=== PATIENT | female | born 1955 | race American Indian/Alaskan Native ===

== ENCOUNTER 2022-07-06 19:26 | Emergency (ER) | payer MEDICARE ==
--- NOTE | 2022-07-06 22:41 | Emergency Department Report ---
History of Present Illness - General Chief Complaint: Overdose Stated Complaint: OVERDOSE/DEPRESSION Time Seen by Provider: 07/06/22 22:26 Source: EMS Mode of arrival: Stretcher Limitations: No Limitations - History of Present Illness Initial Comments: 66 yo F brought in with overdose on xanax about 5 tablets or more in other to kill herself. Pt wrote note on her forearm to her daughter. Pt denies any CP, sob or palpitation. No other modifying or associated factors. Complaint: intentional overdose - Related Data Allergies Allergy/AdvReac Type Severity Reaction Status Date / Time No Known Allergies Allergy Unverified 07/06/22 22:27 ED Review of Systems ROS: Stated complaint: OVERDOSE/DEPRESSION Other details as noted in HPI Comment: All other systems reviewed and negative Psychiatric: suicidal thoughts (suicide attempt ), other ED Physical Exam - General Limitations: No Limitations General appearance: alert, in no apparent distress - Head Head exam: Present: normal inspection - Eye Eye exam: Present: normal appearance Pupils: Present: normal accommodation - ENT ENT exam: Present: normal exam, normal orophraynx, mucous membranes moist - Neck Neck exam: Present: normal inspection, full ROM. Absent: tenderness - Respiratory Respiratory exam: Present: normal lung sounds bilaterally. Absent: respiratory distress, accessory muscle use - Cardiovascular Cardiovascular Exam: Present: regular rate, normal rhythm, normal heart sounds - GI/Abdominal GI/Abdominal exam: Present: soft, normal bowel sounds. Absent: distended, tenderness - Extremities Exam Extremities exam: Present: normal inspection, normal capillary refill. Absent: tenderness, pedal edema - Back Exam Back exam: Absent: tenderness - Neurological Exam Neurological exam: Present: alert, oriented X3 - Psychiatric Psychiatric exam: Present: normal affect, normal mood - Skin Skin exam: Present: warm, normal color ED Course Vital Signs 07/06/22 07/06/22 07/06/22 19:32 23:00 23:16 Temperature 98.3 F Pulse Rate 81 86 68 Respiratory 18 16 13 Rate Blood Pressure Blood Pressure 124/81 [Left] O2 Sat by Pulse 98 100 100 Oximetry 07/06/22 07/06/22 07/07/22 23:30 23:46 00:00 Temperature Pulse Rate 91 H 72 64 Respiratory 14 19 15 Rate Blood Pressure Blood Pressure [Left] O2 Sat by Pulse 100 100 100 Oximetry 07/07/22 07/07/22 07/07/22 00:16 00:30 00:46 Temperature Pulse Rate 66 63 65 Respiratory 14 16 14 Rate Blood Pressure Blood Pressure [Left] O2 Sat by Pulse 100 100 100 Oximetry 07/07/22 07/07/22 01:16 01:30 Temperature Pulse Rate 59 L Respiratory 14 14 Rate Blood Pressure 129/82 125/78 Blood Pressure [Left] O2 Sat by Pulse 100 100 Oximetry ED Medical Decision Making - Lab Data Result diagrams: 07/06/22 22:47 07/06/22 22:47 - EKG Data -: EKG Interpreted by Me EKG shows normal: sinus rhythm Rate: normal - EKG Data 07/06/22 23:25 Noted with normal sinus rhythm at a rate of 66 bpm and there is low voltage otherwise normal ECG. - Medical Decision Making here with overdose on xanax -we will go ahead and do a routine psych order including UDS, CBC, CMP and urinalysis-- Lab reviews noted to be unremarkable including drug screening Poison control called suggested to order EKG and repeat Tylenol inasmuch as this is unremarkable patient could be discharged after monitoring for several hours. Here with overdose on her xanax in other to hurt herself--differential diagnosis, including but not limited to: Encounter for behavioral health screening examination, encounter for medical screening examination--Due to these will go ahead and other routine labs studies including CBC, CMP and UA with UDS and thyroid profile in anticipation for mental health evaluation. Assessment and plan: here with concern with depressive feeling and suicidal ideation --but noted with reassuring vital signs, in no acute distress, who is cooperative, ANO x3, not homicidal but suicidal. At this point in time, this patient is cleared medically for psychiatry evaluation and recommendation. I will go ahead and order a 1013. He has not demonstrated any witnessed behavior here in the ED that would be consistent with acute decompensated psychosis. I have ordered mental health evaluation. Will go ahead and order typical laboratory studies in anticipation of mental health requests. Laboratory studies are reviewed and are unremarkable at this time. Awaiting mental health consultation and evaluation. Ultimate disposition as per mental health team. At this point in time, this patient does not appear to have an immediate medical contraindication to psychiatric admission, evaluation, consultation and placement. Patient has had his 1013 filled out by myself. Holding orders initiated. COVID swab ordered in anticipation of psychiatric placement. As needed medications are ordered. Patient remained suitable at this time for psychiatric placement, consultation and disposition. He does not appear to have an emergent medical condition present at this time. Critical care attestation.: If time is entered above; I have spent that time in minutes in the direct care of this critically ill patient, excluding procedure time. ED Disposition Clinical Impression: Suicide ideation, Suicide attempt Overdose Qualifiers: Encounter type: initial encounter Injury intent: intentional self-harm Qualified Code(s): T50.902A - Poisoning by unspecified drugs, medicaments and biological substances, intentional self-harm, initial encounter Disposition: [address] [place] [address] HOSPITAL Is pt being admited?: No Does the pt Need Aspirin: No Condition: Stable
[2022-07-06 23:06] LABS: Mean Corpuscular HGB Conc 34 % (30-34); Mean Corpuscular Volume 83 fl (79-97); Platelet Count 182 K/mm3 (140-440); Red Cell Distribution Width 14.6 % (13.2-15.2)
[2022-07-06 23:19] LABS: Blood Urea Nitrogen 14 mg/dL (7-17); Hemolysis Index 21
[2022-07-06 23:20] LABS: Amphetamine Screen,Urine PRESUMPTIVE NEGATIVE; Benzodiazepines Screen,Urine PRESUMPTIVE POSITIVE; Cannabinoid Screen,Urine PRESUMPTIVE NEGATIVE; Cocaine Screen,Urine PRESUMPTIVE NEGATIVE; Methadone Screen,Urine PRESUMPTIVE NEGATIVE; Opiate Screen,Urine PRESUMPTIVE NEGATIVE
[2022-07-06 23:20] LABS: BUN/Creatinine Ratio 20
[2022-07-06 23:44] LABS: Bacteria,Urine 4+ /HPF (Negative)
[2022-07-06 23:46] LABS: Color,Urine Colorless (Yellow)
[2022-07-07 00:23] LABS: Basophils % (Manual) 0 % (0.0-1.8); Platelet Estimate Consistent w Auto; Total Cells Counted 100
[2022-07-07 04:08] LABS: Alanine Aminotransferase 25 units/L (7-56); Albumin 4.3 g/dL (3.9-5)
[2022-07-07 04:12] LABS: Bilirubin,Direct < 0.2 mg/dL (0-0.2)
--- NOTE | 2022-07-08 09:47 | Electrocardiograph Report ---
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
--- NOTE | 2022-07-08 11:21 | Consultation ---
History of Present Illness - Reason for Consult Consult date: 07/08/22 Reason for consult: OD - History of Present Psychiatric Illness ED Note:66 yo F brought in with overdose on xanax about 5 tablets or more in other to kill herself. Pt wrote note on her forearm to her daughter. Pt denies any CP, sob or palpitation. No other modifying or associated factors. The patient is a 66 year old year with history depression, anxiety, and insomnia who present to the ED post overdoing on Xanax. The patient was seen today. She is calm, cooperative but confused. She reports ongoing depression x 6 months; unable to states recent triggers. She endorses suicidal ideation with no plan. He denies any hallucinations. PAST PSYCHIATRIC HISTORY Diagnoses:Depression, anxiety, insomnia Suicide attempts or Self-harm behavior: Yes Prior psychiatric hospitalizations: Yes Substance Abuse history:Denies Previous psychiatric medications tried:Ambien, Xanax, Outpatient treatment: Denies PAST MEDICAL HISTORY: None reported Family Psychiatric History: None reported or documented SOCIAL HISTORY Marital Status: Living Arrangements: Lives with daughter Employment Status: [employer] Access to guns/weapons: Denies Education: College History of Abuse: Denies Legal History: None reported REVIEW OF SYSTEMS Constitutional: Negative for weight loss ENT: Negative for stridor Respiratory: Negative for cough or hemoptysis All other systems reviewed and are negative MENTAL STATUS EXAMINATION General Appearance and Behavior: Age appropriate, good hygiene, Cooperation: cooperative Psychomotor Behavior: Psychomotor normal, Mood: Depressed Affect and affective range: congruent with stated mood Thought Process: confused Thought Content: suicidal Speech: normal rate and volume Suicidal Ideation: Yes- No plan Homicidal Ideation: Denies Hallucinations: Denies Delusions: None elicited Impulse Control: Normal Insight and Judgment: Limited Memory: Limited Attention:Attentive Orientation: Aox2 Assessment and Plan (1) Major depressive disorder (2) Treatment Plan 1013 Continue home medications Effexor 37.5mg po daily Trazodone 50mg po qhs The patient is to get first dose of meds prior to leaving. Benefits and possible SE were explained to patient. She verbalizes understanding. Risks, benefits and alternatives of medications discussed with the patient, questions answered and consent obtained from patient. PSYCHOTHERAPY: Supportive psychotherapy provided MEDICAL: Per primary team DELIRIUM PRECAUTIONS: Please re-orient patient frequently, keep lights on during the day, and minimize benzodiazepines and opiates as these medications could w orsen patient's confusion. 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 FOLLOW-UP: Will follow. Thank you for the consult. Please contact with any questions and/or concerns Case discussed with Dr. Braxton who agrees with current disposition Medications and Allergies Medications and Allergies Allergies Allergy/AdvReac Type Severity Reaction Status Date / Time No Known Allergies Allergy Unverified 07/06/22 22:27 Mental Status Exam - Vital signs Last Vital Signs Temp 99.7 F H 07/08/22 09:49 Pulse 115 H 07/08/22 09:49 Resp 20 07/08/22 09:49 BP 84/40 07/08/22 09:49 Pulse Ox 100 07/08/22 09:00 Results Result Diagrams: 07/06/22 22:47 07/06/22 22:47 All other labs normal.
[2022-07-08] MEDS: VENLAFAXINE 37.5 MG TAB PO SCH (17:15)
[2022-07-08 17:40] LABS: Basophils % (Auto) 0.3 % (0.0-1.8); Eosinophils % (Auto) 0.1 % (0.0-4.3); Hematocrit 41.5 % (30.3-42.9); Hemoglobin 13.7 gm/dl (10.1-14.3); Lymphocytes # (Auto) 0.7 K/mm3 (1.2-5.4); Lymphocytes % (Auto) 9.1 % (13.4-35.0); Mean Corpuscular HGB Conc 33 % (30-34); Mean Corpuscular Volume 83 fl (79-97); Monocytes # (Auto) 0.6 K/mm3 (0.0-0.8); Monocytes % (Auto) 8.5 % (0.0-7.3); Platelet Count 193 K/mm3 (140-440); Red Cell Distribution Width 14.8 % (13.2-15.2)
[2022-07-08 18:39] LABS: Alanine Aminotransferase 38 units/L (7-56); Albumin 4.8 g/dL (3.9-5); BUN/Creatinine Ratio 20; Blood Urea Nitrogen 16 mg/dL (7-17); Calcium 9.8 mg/dL (8.4-10.2); Hemolysis Index 3
[2022-07-09] MEDS: traZODone 50 MG TAB PO SCH (02:31)
--- NOTE | 2022-07-09 11:58 | Cat Scan Report ---
CT HEAD WITHOUT CONTRAST INDICATION / CLINICAL INFORMATION: stroke. TECHNIQUE: Axial imaging performed from the skull apex through the skull base without the use of cont rast. Sagittal and coronal reformatted images. All CT scans at this location are performed using CT dose reduction for ALARA by means of automated exposure control. COMPARISON: None available. FINDINGS: CEREBRAL PARENCHYMA: No significant abnormality. No acute territorial infarct. HEMORRHAGE: None. EXTRA-AXIAL SPACES: Normal in size and morphology for the patient's age. VENTRICULAR SYSTEM: Normal in size and morphology for the patient's age. MIDLINE SHIFT OR HERNIATION: None. CEREBELLUM / BRAINSTEM: No significant abnormality. CALVARIUM: No significant abnormality. ORBITS: Normal as visualized. PARANASAL SINUSES / MASTOID AIR CELLS: No significant abnormality. Trace fluid is noted in the right maxillary sinus. SOFT TISSUES of HEAD: No significant abnormality. ADDITIONAL FINDINGS: None. IMPRESSION: No acute intracranial abnormality. Signer Name: Rei Adan Jr, MD Signed: 07/09/2022 11:54 AM Workstation Name: [id number]
[2022-07-09] MEDS: VENLAFAXINE 37.5 MG TAB PO SCH (12:38)
--- NOTE | 2022-07-09 12:39 | Progress Note ---
Subjective - Reason for Consult Consult date: 07/09/22 Reason for consult: SI - Chief Complaint Chief complaint: The patient was seen today. She appears withdrawn and depressed. The patient appears to have some right-sided weakness. She denies having a CVA in the past. The patient says "I tried to kill myself on xanax and sleeping pills." She then says "I thought I was going to usp." The patient says she is severely depressed. She denies hallucinations. REVIEW OF SYSTEMS Constitutional: Negative for weight loss ENT: Negative for stridor Respiratory: Negative for cough or hemoptysis All other systems reviewed and are negative MENTAL STATUS EXAMINATION General Appearance and Behavior: Age appropriate, good hygiene, Cooperation: cooperative Psychomotor Behavior: Psychomotor normal, Mood: Depressed Affect and affective range: congruent with stated mood Thought Process: confused Thought Content: suicidal Speech: normal rate and volume Suicidal Ideation: Yes- No plan Homicidal Ideation: Denies Hallucinations: Denies Delusions: None elicited Impulse Control: Normal Insight and Judgment: Limited Memory: Limited Attention:Attentive Orientation: Aox2 Assessment and Plan (1) Major depressive disorder Treatment Plan 1013 Increase Effexor 75mg po daily Trazodone 50mg po qhs Risks, benefits and alternatives of medications discussed with the patient, questions answered and consent obtained from patient. PSYCHOTHERAPY: Supportive psychotherapy provided MEDICAL: Per primary team DELIRIUM PRECAUTIONS: Please re-orient patient frequently, keep lights on during the day, and minimize benzodiazepines and opiates as these medications could worsen patient's confusion. 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 FOLLOW-UP: Will follow. Thank you for the consult. Please contact with any questions and/or concerns Case discussed with Dr. Braxton who agrees with current disposition Mental Status Exam - Vital signs Last Vital Signs Temp 98.5 F 07/09/22 07:48 Pulse 69 07/09/22 07:48 Resp 18 07/09/22 07:48 BP 113/73 07/09/22 07:48 Pulse Ox 99 07/09/22 07:48
[2022-07-10] MEDS: traZODone 50 MG TAB PO SCH ×2 (00:44→22:40)
--- NOTE | 2022-07-10 07:37 | Event Note ---
Date: 07/10/22 S: No events reported overnight O: Vital Signs - 8 hr 07/10/22 07/10/22 07/10/22 00:01 00:07 01:01 Pulse Rate 87 90 90 Respiratory 21 17 13 Rate Blood Pressure 114/79 114/79 107/72 O2 Sat by Pulse 99 98 97 Oximetry 07/10/22 07/10/22 02:01 03:01 Pulse Rate 90 91 H Respiratory 16 14 Rate Blood Pressure 113/76 108/75 O2 Sat by Pulse 97 96 Oximetry A: major depressive disorder P: 1013/awaiting inpatient psych
[2022-07-10] MEDS ORDERED: ACETAMINOPHEN 500 MG TAB PO ONE (09:34)
[2022-07-10] MEDS: VENLAFAXINE 75 MG TAB PO SCH (10:03)
--- NOTE | 2022-07-10 10:50 | Progress Note ---
Subjective - Reason for Consult Consult date: 07/10/22 Reason for consult: depression - Chief Complaint Chief complaint: The patient was seen today. She appears withdrawn and depressed. The patient endorses being "very depressed." She also still endorses SI. The patient denies having a plan. REVIEW OF SYSTEMS Constitutional: Negative for weight loss ENT: Negative for stridor Respiratory: Negative for cough or hemoptysis All other systems reviewed and are negative MENTAL STATUS EXAMINATION General Appearance and Behavior: Age appropriate, good hygiene, Cooperation: cooperative Psychomotor Behavior: Psychomotor normal, Mood: Depressed Affect and affective range: congruent with stated mood Thought Process: confused Thought Content: suicidal Speech: normal rate and volume Suicidal Ideation: Yes- No plan Homicidal Ideation: Denies Hallucinations: Denies Delusions: None elicited Impulse Control: Normal Insight and Judgment: Limited Memory: Limited Attention:Attentive Orientation: Aox2 Assessment and Plan (1) Major depressive disorder Treatment Plan 1013 Effexor 75mg po daily Trazodone 50mg po qhs Risks, benefits and alternatives of medications discussed with the patient, questions answered and consent obtained from patient. PSYCHOTHERAPY: Supportive psychotherapy provided MEDICAL: Per primary team DELIRIUM PRECAUTIONS: Please re-orient patient frequently, keep lights on during the day, and minimize benzodiazepines and opiates as these medications could worsen patient's confusion. 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 FOLLOW-UP: Will follow. Thank you for the consult. Please contact with any questions and/or concerns Case discussed with Dr. Braxton who agrees with current disposition Mental Status Exam - Vital signs Last Vital Signs Temp 98.5 F 07/09/22 07:48 Pulse 80 07/10/22 08:01 Resp 12 07/10/22 08:01 BP 107/74 07/10/22 08:01 Pulse Ox 90 07/10/22 08:01
[2022-07-11] MEDS ORDERED: LINAGLIPTIN 5 MG TAB PO SCH (10:00)
[2022-07-11] MEDS ORDERED: NON-FORMULARY EACH (Sitagliptin Phosphate [Januvia] 50 MG Tablet) PO SCH (10:00)
[2022-07-11] MEDS: carvediloL 3.125 MG TAB PO SCH ×2 (11:25→22:47)
[2022-07-11] MEDS: VENLAFAXINE 75 MG TAB PO SCH (11:27)
--- NOTE | 2022-07-11 12:08 | Event Note ---
Date: 07/11/22 S: No events reported overnight O: Vital Signs - 8 hr 07/11/22 07/11/22 07/11/22 05:47 09:48 09:51 Temperature 99.4 F 99.1 F Pulse Rate 80 92 H Respiratory 15 17 Rate Blood Pressure 105/75 Blood Pressure 126/87 105/75 [Left] O2 Sat by Pulse 98 99 98 Oximetry 07/11/22 07/11/22 07/11/22 10:00 11:00 11:25 Temperature Pulse Rate 109 H Respiratory Rate Blood Pressure 115/78 96/75 124/76 Blood Pressure [Left] O2 Sat by Pulse 95 98 Oximetry A: Major depressive disorder P: 1013/awaiting inpatient psych
--- NOTE | 2022-07-11 12:18 | Progress Note ---
Subjective - Reason for Consult Consult date: 07/11/22 Reason for consult: suicide attempt - Chief Complaint Chief complaint: The patient was seen today. She appears better, although she still endorses depression. She says "slightly, I lost a child, so that never goes away. The patient currently denies SI/HI, but she was admitted for suicidal attempt by OD, and had left the daughter a suicide note. I spoke with the patient's daughter who states that she patient slit her wrist years ago. She says the patient is severely depressed and never leaves her room. She says she tried to encourage the patient to do better but it doesn't last long. I inform her that the patient has not been mobile while in the hospital. She says the patient can walk and is very independent, and seems that the patient has lost her will to live. She says she doesn't know what to do to help the patient. The daughter says she feels the patient is unsafe to return home right now. REVIEW OF SYSTEMS Constitutional: Negative for weight loss ENT: Negative for stridor Respiratory: Negative for cough or hemoptysis All other systems reviewed and are negative MENTAL STATUS EXAMINATION General Appearance and Behavior: Age appropriate, good hygiene, Cooperation: cooperative Psychomotor Behavior: Psychomotor normal, Mood: Depressed Affect and affective range: congruent with stated mood Thought Process: goal directed Thought Content: suicidal Speech: normal rate and volume Suicidal Ideation: Yes- No plan Homicidal Ideation: Denies Hallucinations: Denies Delusions: None elicited Impulse Control: Normal Insight and Judgment: Limited Memory: Limited Attention:Attentive Orientation: Aox2 Assessment and Plan (1) Major depressive disorder Treatment Plan 1013 Increase Effexor 150mg po daily Risks, benefits and alternatives of medications discussed with the patient, questions answered and consent obtained from patient. PSYCHOTHERAPY: Supportive psychotherapy provided MEDICAL: Per primary team DELIRIUM PRECAUTIONS: Please re-orient patient frequently, keep lights on during the day, and minimize benzodiazepines and opiates as these medications could worsen patient's confusion. 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 FOLLOW-UP: Will follow. Thank you for the consult. Please contact with any questions and/or concerns Case discussed with Dr. Braxton who agrees with current disposition Mental Status Exam - Vital signs Last Vital Signs Temp 99.1 F 07/11/22 09:48 Pulse 109 H 07/11/22 11:25 Resp 17 08/28/22 09:48 BP 124/76 07/11/22 11:25 Pulse Ox 98 07/11/22 11:00
[2022-07-11] MEDS ORDERED: VENLAFAXINE XR 75 MG CAP PO SCH (12:19)
[2022-07-11] MEDS: traZODone 50 MG TAB PO SCH (22:47)
[2022-07-12 06:56] VITALS: BP 128/85
--- NOTE | 2022-07-12 11:41 | Progress Note ---
Subjective - Reason for Consult Consult date: 07/12/22 Reason for consult: Overdose - Chief Complaint Chief complaint: The patient was seen today. She is lying down awake. The patient verbalizes feeling much better, and regretting what she did. She says "it was selfish and not fair to my daughter." The patient denies SI/HI. She says "I will not ever do that again." I asked the patient why was she allowing people to feed her, wearing diapers and pretending to not walk, when her daughter states the patient is fully independent. The patient says "because the xanax has my stiffled when I take it." I also discussed with the patient the need for continuous therapy, joining support groups and compliance with medication. She agrees that she needs all of these services. I spoke with the patient's daughter. I told her that the patient was clear from a psych standpoint. She asked me what do we do if a patient has nowhere to go. She says her mom pretends to be helpless to manipulate people and for attention. She says her mom has taken xanax before and this behavior doesn't happen. She says her mom is fully independent and can do all of her ADLs without assistance. She says she's tired of her mom being a control freak, pretending to be helpless and looking for her to take care of her. Discussed with the patient about independent living facilities, and group homes. She is open to this and would like resources for these things. The daughter will pick the patient up around 4 pm. Please release her to her daughter's care. REVIEW OF SYSTEMS Constitutional: Negative for weight loss ENT: Negative for stridor Respiratory: Negative for cough or hemoptysis All other systems reviewed and are negative MENTAL STATUS EXAMINATION General Appearance and Behavior: Age appropriate, good hygiene, Cooperation: cooperative Psychomotor Behavior: Psychomotor normal, Mood: a lot better Affect and affective range: congruent with stated mood Thought Process: goal directed Thought Content: optimism Speech: normal rate and volume Suicidal Ideation: Denies Homicidal Ideation: Denies Hallucinations: Denies Delusions: None elicited Impulse Control: Normal Insight and Judgment: Limited Memory: Limited Attention:Attentive Orientation: Aox 3 Assessment and Plan (1) Major depressive disorder Treatment Plan d/c 1013 Home Olanzapine 15mg po daily Trazdone 50mg po qhs Effexor 150mg po daily Risks, benefits and alternatives of medications discussed with the patient, questions answered and consent obtained from patient. PSYCHOTHERAPY: Supportive psychotherapy provided MEDICAL: Per primary team DELIRIUM PRECAUTIONS: Please re-orient patient frequently, keep lights on during the day, and minimize benzodiazepines and opiates as these medications could worsen patient's confusion. 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 The patient and her daughter understand that if SI/HI arise they are to seek immediate assistance The time clock inspector to give the patient all necessary outpatient resources, and further discuss safety plan with her FOLLOW-UP: sign off Thank you for the consult. Please contact with any questions and/or concerns Case discussed with Dr. Braxton Mental Status Exam - Vital signs Last Vital Signs Temp 98.3 F 07/11/22 20:20 Pulse 89 07/12/22 06:00 Resp 13 07/12/22 06:00 BP 128/85 07/12/22 06:00 Pulse Ox 98 07/12/22 06:00
--- NOTE | 2022-07-12 12:36 | Event Note ---
Date: 07/12/22 Patient seen and examined. She is in no acute distress. Nursing team reports no acute issues. Patient was medically cleared on her initial evaluation. The psychiatric team have recommended discontinuation of 1013. Nursing team endorses that daughter will come by to pick patient up. Vital Signs 07/06/22 07/06/22 07/06/22 19:32 23:00 23:16 Temperature 98.3 F Pulse Rate 81 86 68 Respiratory 18 16 13 Rate Blood Pressure Blood Pressure 124/81 [Left] O2 Sat by Pulse 98 100 100 Oximetry 07/06/22 07/06/22 07/07/22 23:30 23:46 00:00 Temperature Pulse Rate 91 H 72 64 Respiratory 14 19 15 Rate Blood Pressure Blood Pressure [Left] O2 Sat by Pulse 100 100 100 Oximetry 07/07/22 07/07/22 07/07/22 00:16 00:30 00:46 Temperature Pulse Rate 66 63 65 Respiratory 14 16 14 Rate Blood Pressure Blood Pressure [Left] O2 Sat by Pulse 100 100 100 Oximetry 07/07/22 07/07/22 07/07/22 01:16 01:30 07:00 Temperature Pulse Rate 59 L 108 H Respiratory 14 14 17 Rate Blood Pressure 129/82 125/78 112/74 Blood Pressure [Left] O2 Sat by Pulse 100 100 100 Oximetry 07/07/22 07/07/22 07/08/22 10:08 23:00 09:00 Temperature 97.7 F Pulse Rate 77 Respiratory 16 Rate Blood Pressure 131/89 Blood Pressure [Left] O2 Sat by Pulse 100 100 100 Oximetry 07/08/22 07/08/22 07/08/22 09:49 13:07 20:00 Temperature 99.7 F H 98.9 F Pulse Rate 115 H 115 H 96 H Respiratory 20 20 18 Rate Blood Pressure Blood Pressure 84/40 110/80 149/67 [Left] O2 Sat by Pulse 100 97 Oximetry 07/09/22 07/09/22 07/09/22 07:48 11:01 12:01 Temperature 98.5 F Pulse Rate 69 95 H 68 Respiratory 18 13 9 L Rate Blood Pressure 126/86 111/68 Blood Pressure 113/73 [Left] O2 Sat by Pulse 99 98 99 Oximetry 07/09/22 07/09/22 07/09/22 13:01 14:01 15:01 Temperature Pulse Rate 65 65 64 Respiratory 11 L 11 L 10 L Rate Blood Pressure 120/74 117/68 121/70 Blood Pressure [Left] O2 Sat by Pulse 100 100 100 Oximetry 07/09/22 07/09/22 07/09/22 16:01 17:01 17:46 Temperature Pulse Rate 62 60 85 Respiratory 10 L 8 L 17 Rate Blood Pressure 125/72 129/78 Blood Pressure 112/78 [Left] O2 Sat by Pulse 100 100 99 Oximetry 07/09/22 07/09/22 07/09/22 18:01 19:01 20:01 Temperature Pulse Rate 80 98 H 81 Respiratory 13 11 L 12 Rate Blood Pressure 111/74 110/67 102/74 Blood Pressure [Left] O2 Sat by Pulse 99 100 100 Oximetry 07/09/22 07/09/22 07/09/22 21:01 22:01 23:01 Temperature Pulse Rate 81 98 H 98 H Respiratory 11 L 15 17 Rate Blood Pressure 111/74 117/76 110/77 Blood Pressure [Left] O2 Sat by Pulse 99 98 100 Oximetry 07/10/22 07/10/22 07/10/22 00:01 00:07 01:01 Temperature Pulse Rate 87 90 90 Respiratory 21 17 13 Rate Blood Pressure 114/79 114/79 107/72 Blood Pressure [Left] O2 Sat by Pulse 99 98 97 Oximetry 07/10/22 07/10/22 07/10/22 02:01 03:01 04:01 Temperature Pulse Rate 90 91 H 86 Respiratory 16 14 14 Rate Blood Pressure 113/76 108/75 109/74 Blood Pressure [Left] O2 Sat by Pulse 97 96 95 Oximetry 07/10/22 07/10/22 07/10/22 05:01 06:01 07:01 Temperature Pulse Rate 93 H 85 81 Respiratory 11 L 11 L 11 L Rate Blood Pressure 111/74 107/79 111/74 Blood Pressure [Left] O2 Sat by Pulse 94 97 91 Oximetry 07/10/22 07/10/22 07/10/22 08:01 09:01 10:01 Temperature Pulse Rate 80 98 H 107 H Respiratory 12 12 12 Rate Blood Pressure 107/74 101/70 104/74 Blood Pressure [Left] O2 Sat by Pulse 90 96 92 Oximetry 07/10/22 07/10/22 07/10/22 11:01 12:01 13:01 Temperature Pulse Rate 78 79 82 Respiratory 12 14 11 L Rate Blood Pressure 107/65 119/75 126/75 Blood Pressure [Left] O2 Sat by Pulse 95 95 95 Oximetry 07/10/22 07/10/22 07/10/22 14:01 15:00 16:01 Temperature Pulse Rate 80 87 76 Respiratory 12 15 11 L Rate Blood Pressure 121/76 119/75 106/71 Blood Pressure [Left] O2 Sat by Pulse 93 92 94 Oximetry 07/10/22 07/10/22 07/11/22 16:48 20:47 05:47 Temperature 97.8 F 99.4 F Pulse Rate 80 Respiratory 15 Rate Blood Pressure Blood Pressure 126/87 [Left] O2 Sat by Pulse 98 98 Oximetry 07/11/22 07/11/22 07/11/22 09:48 09:51 10:00 Temperature 99.1 F Pulse Rate 92 H Respiratory 17 Rate Blood Pressure 105/75 115/78 Blood Pressure 105/75 [Left] O2 Sat by Pulse 99 98 95 Oximetry 07/11/22 07/11/22 07/11/22 11:00 11:25 12:00 Temperature Pulse Rate 109 H Respiratory Rate Blood Pressure 96/75 124/76 126/75 Blood Pressure [Left] O2 Sat by Pulse 98 100 Oximetry 07/11/22 07/11/22 07/11/22 13:00 14:00 15:00 Temperature Pulse Rate Respiratory Rate Blood Pressure 107/69 123/78 116/77 Blood Pressure [Left] O2 Sat by Pulse 98 99 100 Oximetry 07/11/22 07/11/22 07/11/22 16:00 17:00 18:00 Temperature Pulse Rate Respiratory Rate Blood Pressure 111/73 118/84 118/74 Blood Pressure [Left] O2 Sat by Pulse 100 97 99 Oximetry 07/11/22 07/11/22 07/11/22 19:00 20:00 20:20 Temperature 98.3 F Pulse Rate 93 H Respiratory 19 Rate Blood Pressure 117/74 132/80 Blood Pressure 115/75 [Left] O2 Sat by Pulse 96 97 99 Oximetry 07/11/22 07/11/22 07/11/22 21:00 22:00 22:47 Temperature Pulse Rate 80 Respiratory Rate Blood Pressure 120/73 129/80 122/79 Blood Pressure [Left] O2 Sat by Pulse 100 99 Oximetry 07/11/22 07/11/22 07/12/22 23:00 23:44 01:00 Temperature Pulse Rate 74 94 H 67 Respiratory 20 19 18 Rate Blood Pressure 133/82 138/90 138/80 Blood Pressure [Left] O2 Sat by Pulse 98 96 94 Oximetry 07/12/22 07/12/22 07/12/22 02:00 03:00 04:00 Temperature Pulse Rate 68 81 62 Respiratory 11 L 16 11 L Rate Blood Pressure 142/90 130/77 127/81 Blood Pressure [Left] O2 Sat by Pulse 96 99 97 Oximetry 07/12/22 07/12/22 05:00 06:00 Temperature Pulse Rate 64 89 Respiratory 10 L 13 Rate Blood Pressure 129/81 128/85 Blood Pressure [Left] O2 Sat by Pulse 97 98 Oximetry Lab Results 07/06/22 07/06/22 07/06/22 Range/Units 21:38 21:38 22:47 WBC 5.5 (4.5-11.0) K/mm3 RBC 4.60 (3.65-5.03) M/mm3 Hgb 13.0 (10.1-14.3) gm/dl Hct 38.0 (30.3-42.9) % MCV 83 (79-97) fl MCH 28 (28-32) pg MCHC 34 (30-34) % RDW 14.6 (13.2-15.2) % Plt Count 182 (140-440) K/mm3 Lymph % (Auto) (13.4-35.0) % [place] % (Auto) (0.0-7.3) % Eos % (Auto) (0.0-4.3) % Baso % (Auto) Software Team Leader Lymph # (Auto) (1.2-5.4) K/mm3 [place] # (Auto) (0.0-0.8) K/mm3 Eos # (Auto) (0.0-0.4) K/mm3 Baso # (Auto) (0.0-0.1) K/mm3 Add Manual Diff Complete Total Counted 100 Seg Neutrophils % (40.0-70.0) % Seg Neuts % (Manual) 59.0 (40.0-70.0) % Band Neutrophils % 0 % Lymphocytes % (Manual) 29.0 (13.4-35.0) % Reactive Lymphs % (Man) 0 % Monocytes % (Manual) 10.0 H (0.0-7.3) % Eosinophils % (Manual) 2.0 (0.0-4.3) % Basophils % (Manual) 0 (0.0-1.8) % Metamyelocytes % 0 % Myelocytes % 0 % Promyelocytes % 0 % Blast Cells % 0 % Nucleated RBC % Not Reportable Seg Neutrophils # (1.8-7.7) K/mm3 Seg Neutrophils # Man 3.2 (1.8-7.7) K/mm3 Band Neutrophils # 0.0 K/mm3 Lymphocytes # (Manual) 1.6 (1.2-5.4) K/mm3 Abs React Lymphs (Man) 0.0 K/mm3 Monocytes # (Manual) 0.6 (0.0-0.8) K/mm3 Eosinophils # (Manual) 0.1 (0.0-0.4) K/mm3 Basophils # (Manual) 0.0 (0.0-0.1) K/mm3 Metamyelocytes # 0.0 K/mm3 Myelocytes # 0.0 K/mm3 Promyelocytes # 0.0 K/mm3 Blast Cells # 0.0 K/mm3 WBC Morphology Not Reportable Hypersegmented Neuts Not Reportable Hyposegmented Neuts Not Reportable Hypogranular Neuts Not Reportable Smudge Cells Not Reportable Toxic Granulation Not Reportable Toxic Vacuolation Not Reportable Dohle Bodies Not Reportable Pelger-Huet Anomaly Not Reportable Yumiko Rods Not Reportable Platelet Estimate Consistent w auto Clumped Platelets Not Reportable Plt Clumps, EDTA Not Reportable Large Platelets Not Reportable Giant Platelets Not Reportable Platelet Satelliting Not Reportable Plt Morphology Comment Not Reportable RBC Morphology Not Reportable Dimorphic RBCs Not Reportable Polychromasia Not Reportable Hypochromasia Not Reportable Poikilocytosis Not Reportable Anisocytosis Not Reportable Microcytosis Not Reportable Macrocytosis Not Reportable Spherocytes Not Reportable Pappenheimer Bodies Not Reportable Sickle Cells Not Reportable Target Cells Not Reportable Tear Drop Cells Not Reportable Ovalocytes Not Reportable Helmet Cells Not Reportable [place] Bodies Not Reportable [place] Rings Not Reportable Jose A Cells Not Reportable Bite Cells Not Reportable Crenated Cell Not Reportable Elliptocytes Not Reportable Acanthocytes (Spur) Not Reportable Rouleaux Not Reportable Hemoglobin C Crystals Not Reportable Schistocytes Not Reportable Malaria parasites Not Reportable Duncan Bodies Not Reportable Hem Pathologist Commnt No Sodium (137-145) mmol/L Potassium (3.6-5.0) mmol/L Chloride (98-107) mmol/L Carbon Dioxide (22-30) mmol/L Anion Gap mmol/L BUN (7-17) mg/dL Creatinine (0.6-1.2) mg/dL Estimated GFR ml/min BUN/Creatinine Ratio % Glucose (65-100) mg/dL POC Glucose (70-105) mg/dL Calcium (8.4-10.2) mg/dL Total Bilirubin (0.1-1.2) mg/dL Direct Bilirubin (0-0.2) mg/dL Indirect Bilirubin mg/dL AST (5-40) units/L ALT (7-56) units/L Alkaline Phosphatase (35-129) units/L Total Protein (6.3-8.2) g/dL Albumin (3.9-5) g/dL Albumin/Globulin Ratio % Urine Color Colorless (Yellow) Urine Turbidity Clear (Clear) Specific Gage (Man) 1.010 (1.003-1.030) Ur Protein (Man) Negative (Negative) mg/dL Ur Ketones (Man) Negative (Negative) Urine Bilirubin (Man) Negative (Negative) Urine WBC (Auto) 4.0 (0.0-6.0) /HPF Urine RBC (Auto) 1.0 (0.0-6.0) /HPF U Epithel Cells (Auto) 10.0 (0-13.0) /HPF Urine Bacteria (Auto) 4+ (Negative) /HPF Urine RBC (Manual) Negative (Negative) Salicylates (2.8-20.0) mg/dL Urine Opiates Screen Presumptive negative Urine Methadone Screen Presumptive negative Acetaminophen (10.0-30.0) ug/mL Ur Barbiturates Screen Presumptive negative Ur Phencyclidine Scrn Presumptive negative Ur Amphetamines Screen Presumptive negative U Benzodiazepines Scrn Presumptive positive Urine Cocaine Screen Presumptive negative U Marijuana (THC) Screen Presumptive negative Drugs of Abuse Note Disclamer Plasma/Serum Alcohol (0-0.07) % 07/06/22 07/06/22 07/06/22 Range/Units 22:47 22:47 22:47 WBC (4.5-11.0) K/mm3 RBC (3.65-5.03) M/mm3 Hgb (10.1-14.3) gm/dl Hct (30.3-42.9) % MCV (79-97) fl MCH (28-32) pg MCHC (30-34) % RDW (13.2-15.2) % Plt Count (140-440) K/mm3 Lymph % (Auto) (13.4-35.0) % [place] % (Auto) (0.0-7.3) % Eos % (Auto) (0.0-4.3) % Baso % (Auto) Lymph # (Auto) (1.2-5.4) K/mm3 [place] # (Auto) (0.0-0.8) K/mm3 Eos # (Auto) (0.0-0.4) K/mm3 Baso # (Auto) (0.0-0.1) K/mm3 Add Manual Diff Total Counted Seg Neutrophils % (40.0-70.0) % Seg Neuts % (Manual) (40.0-70.0) % Band Neutrophils % % Lymphocytes % (Manual) (13.4-35.0) % Reactive Lymphs % (Man) % Monocytes % (Manual) (0.0-7.3) % Eosinophils % (Manual) (0.0-4.3) % Basophils % (Manual) (0.0-1.8) % Metamyelocytes % % Myelocytes % % Promyelocytes % % Blast Cells % % Nucleated RBC % Seg Neutrophils # (1.8-7.7) K/mm3 Seg Neutrophils # Man (1.8-7.7) K/mm3 Band Neutrophils # K/mm3 Lymphocytes # (Manual) (1.2-5.4) K/mm3 Abs React Lymphs (Man) K/mm3 Monocytes # (Manual) (0.0-0.8) K/mm3 Eosinophils # (Manual) (0.0-0.4) K/mm3 Basophils # (Manual) (0.0-0.1) K/mm3 Metamyelocytes # K/mm3 Myelocytes # K/mm3 Promyelocytes # K/mm3 Blast Cells # K/mm3 WBC Morphology Hypersegmented Neuts Hyposegmented Neuts Hypogranular Neuts Smudge Cells Toxic Granulation Toxic Vacuolation Dohle Bodies Pelger-Huet Anomaly Yumiko Rods Platelet Estimate Clumped Platelets Plt Clumps, EDTA Large Platelets Giant Platelets Platelet Satelliting Plt Morphology Comment RBC Morphology Dimorphic RBCs Polychromasia Hypochromasia Poikilocytosis Anisocytosis Microcytosis Macrocytosis Spherocytes Pappenheimer Bodies Sickle Cells Target Cells Tear Drop Cells Ovalocytes Helmet Cells [place] Bodies [place] Rings [place] Cells Bite Cells Crenated Cell Elliptocytes Acanthocytes (Spur) Rouleaux Hemoglobin C Crystals Schistocytes Malaria parasites Duncan Bodies Hem Pathologist Commnt Sodium 140 (137-145) mmol/L Potassium 4.4 (3.6-5.0) mmol/L Chloride 102.3 (98-107) mmol/L Carbon Dioxide 25 (22-30) mmol/L Anion Gap 17 mmol/L BUN 14 (7-17) mg/dL Creatinine 0.7 (0.6-1.2) mg/dL Estimated GFR > 60 ml/min BUN/Creatinine Ratio 20 % Glucose 94 (65-100) mg/dL POC Glucose (70-105) mg/dL Calcium 10.0 (8.4-10.2) mg/dL Total Bilirubin (0.1-1.2) mg/dL Direct Bilirubin (0-0.2) mg/dL Indirect Bilirubin mg/dL AST (5-40) units/L ALT (7-56) units/L Alkaline Phosphatase (35-129) units/L Total Protein (6.3-8.2) g/dL Albumin (3.9-5) g/dL Albumin/Globulin Ratio % Urine Color (Yellow) Urine Turbidity (Clear) Specific Gage (Man) (1.003-1.030) Ur Protein (Man) (Negative) mg/dL Ur Ketones (Man) (Negative) Urine Bilirubin (Man) (Negative) Urine WBC (Auto) (0.0-6.0) /HPF Urine RBC (Auto) (0.0-6.0) /HPF U Epithel Cells (Auto) (0-13.0) /HPF Urine Bacteria (Auto) (Negative) /HPF Urine RBC (Manual) (Negative) Salicylates < 0.3 L (2.8-20.0) mg/dL Urine Opiates Screen Urine Methadone Screen Acetaminophen 5.0 L (10.0-30.0) ug/mL Ur Barbiturates Screen Ur Phencyclidine Scrn Ur Amphetamines Screen U Benzodiazepines Scrn Urine Cocaine Screen U Marijuana (THC) Screen Drugs of Abuse Note Plasma/Serum Alcohol (0-0.07) % 07/07/22 07/07/22 07/07/22 Range/Units 02:45 02:45 02:45 WBC (4.5-11.0) K/mm3 RBC (3.65-5.03) M/mm3 Hgb (10.1-14.3) gm/dl Hct (30.3-42.9) % MCV (79-97) fl MCH (28-32) pg MCHC (30-34) % RDW (13.2-15.2) % Plt Count (140-440) K/mm3 Lymph % (Auto) (13.4-35.0) % [place] % (Auto) (0.0-7.3) % Eos % (Auto) (0.0-4.3) % Baso % (Auto) Lymph # (Auto) (1.2-5.4) K/mm3 [place] # (Auto) (0.0-0.8) K/mm3 Eos # (Auto) (0.0-0.4) K/mm3 Baso # (Auto) (0.0-0.1) K/mm3 Add Manual Diff Total Counted Seg Neutrophils % (40.0-70.0) % Seg Neuts % (Manual) (40.0-70.0) % Band Neutrophils % % Lymphocytes % (Manual) (13.4-35.0) % Reactive Lymphs % (Man) % Monocytes % (Manual) (0.0-7.3) % Eosinophils % (Manual) (0.0-4.3) % Basophils % (Manual) (0.0-1.8) % Metamyelocytes % % Myelocytes % % Promyelocytes % % Blast Cells % % Nucleated RBC % Seg Neutrophils # (1.8-7.7) K/mm3 Seg Neutrophils # Man (1.8-7.7) K/mm3 Band Neutrophils # K/mm3 Lymphocytes # (Manual) (1.2-5.4) K/mm3 Abs React Lymphs (Man) K/mm3 Monocytes # (Manual) (0.0-0.8) K/mm3 Eosinophils # (Manual) (0.0-0.4) K/mm3 Basophils # (Manual) (0.0-0.1) K/mm3 Metamyelocytes # K/mm3 Myelocytes # K/mm3 Promyelocytes # K/mm3 Blast Cells # K/mm3 WBC Morphology Hypersegmented Neuts Hyposegmented Neuts Hypogranular Neuts Smudge Cells Toxic Granulation Toxic Vacuolation Dohle Bodies Pelger-Huet Anomaly Yumiko Rods Platelet Estimate Clumped Platelets Plt Clumps, EDTA Large Platelets Giant Platelets Platelet Satelliting Plt Morphology Comment RBC Morphology Dimorphic RBCs Polychromasia Hypochromasia Poikilocytosis Anisocytosis Microcytosis Macrocytosis Spherocytes Pappenheimer Bodies Sickle Cells Target Cells Tear Drop Cells Ovalocytes Helmet Cells [place] Bodies [place] Rings [place] Cells Bite Cells Crenated Cell Elliptocytes Acanthocytes (Spur) Rouleaux Hemoglobin C Crystals Schistocytes Malaria parasites Duncan Bodies Hem Pathologist Commnt Sodium (137-145) mmol/L Potassium (3.6-5.0) mmol/L Chloride (98-107) mmol/L Carbon Dioxide (22-30) mmol/L Anion Gap mmol/L BUN (7-17) mg/dL Creatinine (0.6-1.2) mg/dL Estimated GFR ml/min BUN/Creatinine Ratio % Glucose (65-100) mg/dL POC Glucose (70-105) mg/dL Calcium (8.4-10.2) mg/dL Total Bilirubin 0.90 (0.1-1.2) mg/dL Direct Bilirubin < 0.2 (0-0.2) mg/dL Indirect Bilirubin 0.7 mg/dL AST 29 (5-40) units/L ALT 25 (7-56) units/L Alkaline Phosphatase 63 (35-129) units/L Total Protein 6.5 (6.3-8.2) g/dL Albumin 4.3 (3.9-5) g/dL Albumin/Globulin Ratio 2.0 % Urine Color (Yellow) Urine Turbidity (Clear) Specific Gage (Man) (1.003-1.030) Ur Protein (Man) (Negative) mg/dL Ur Ketones (Man) (Negative) Urine Bilirubin (Man) (Negative) Urine WBC (Auto) (0.0-6.0) /HPF Urine RBC (Auto) (0.0-6.0) /HPF U Epithel Cells (Auto) (0-13.0) /HPF Urine Bacteria (Auto) (Negative) /HPF Urine RBC (Manual) (Negative) Salicylates (2.8-20.0) mg/dL Urine Opiates Screen Urine Methadone Screen Acetaminophen 5.0 L (10.0-30.0) ug/mL Ur Barbiturates Screen Ur Phencyclidine Scrn Ur Amphetamines Screen U Benzodiazepines Scrn Urine Cocaine Screen U Marijuana (THC) Screen Drugs of Abuse Note Plasma/Serum Alcohol < 0.01 (0-0.07) % 07/08/22 07/08/22 07/09/22 Range/Units 17:02 17:02 17:29 WBC 7.6 (4.5-11.0) K/mm3 RBC 5.00 (3.65-5.03) M/mm3 Hgb 13.7 (10.1-14.3) gm/dl Hct 41.5 (30.3-42.9) % MCV 83 (79-97) fl MCH 27 L (28-32) pg MCHC 33 (30-34) % RDW 14.8 (13.2-15.2) % Plt Count 193 (140-440) K/mm3 Lymph % (Auto) 9.1 L (13.4-35.0) % [place] % (Auto) 8.5 H (0.0-7.3) % Eos % (Auto) 0.1 (0.0-4.3) % Baso % (Auto) 0.3 Lymph # (Auto) 0.7 L (1.2-5.4) K/mm3 [place] # (Auto) 0.6 (0.0-0.8) K/mm3 Eos # (Auto) 0.0 (0.0-0.4) K/mm3 Baso # (Auto) 0.0 (0.0-0.1) K/mm3 Add Manual Diff Total Counted Seg Neutrophils % 82.0 H (40.0-70.0) % Seg Neuts % (Manual) (40.0-70.0) % Band Neutrophils % % Lymphocytes % (Manual) (13.4-35.0) % Reactive Lymphs % (Man) % Monocytes % (Manual) (0.0-7.3) % Eosinophils % (Manual) (0.0-4.3) % Basophils % (Manual) (0.0-1.8) % Metamyelocytes % % Myelocytes % % Promyelocytes % % Blast Cells % % Nucleated RBC % Seg Neutrophils # 6.2 (1.8-7.7) K/mm3 Seg Neutrophils # Man (1.8-7.7) K/mm3 Band Neutrophils # K/mm3 Lymphocytes # (Manual) (1.2-5.4) K/mm3 Abs React Lymphs (Man) K/mm3 Monocytes # (Manual) (0.0-0.8) K/mm3 Eosinophils # (Manual) (0.0-0.4) K/mm3 Basophils # (Manual) (0.0-0.1) K/mm3 Metamyelocytes # K/mm3 Myelocytes # K/mm3 Promyelocytes # K/mm3 Blast Cells # K/mm3 WBC Morphology Hypersegmented Neuts Hyposegmented Neuts Hypogranular Neuts Smudge Cells Toxic Granulation Toxic Vacuolation Dohle Bodies Pelger-Huet Anomaly Yumiko Rods Platelet Estimate Clumped Platelets Plt Clumps, EDTA Large Platelets Giant Platelets Platelet Satelliting Plt Morphology Comment RBC Morphology Dimorphic RBCs Polychromasia Hypochromasia Poikilocytosis Anisocytosis Microcytosis Macrocytosis Spherocytes Pappenheimer Bodies Sickle Cells Target Cells Tear Drop Cells Ovalocytes Helmet Cells [place] Bodies [place] Rings Jose A Cells Bite Cells Crenated Cell Elliptocytes Acanthocytes (Spur) Rouleaux Hemoglobin C Crystals Schistocytes Malaria parasites Duncan Bodies Hem Pathologist Commnt Sodium 139 (137-145) mmol/L Potassium 3.8 (3.6-5.0) mmol/L Chloride 100.2 (98-107) mmol/L Carbon Dioxide 19 L (22-30) mmol/L Anion Gap 24 mmol/L BUN 16 (7-17) mg/dL Creatinine 0.8 (0.6-1.2) mg/dL Estimated GFR > 60 ml/min BUN/Creatinine Ratio 20 % Glucose 94 (65-100) mg/dL POC Glucose 73 (70-105) mg/dL Calcium 9.8 (8.4-10.2) mg/dL Total Bilirubin 2.00 H (0.1-1.2) mg/dL Direct Bilirubin (0-0.2) mg/dL Indirect Bilirubin mg/dL AST 123 H (5-40) units/L ALT 38 (7-56) units/L Alkaline Phosphatase 81 (35-129) units/L Total Protein 7.2 (6.3-8.2) g/dL Albumin 4.8 (3.9-5) g/dL Albumin/Globulin Ratio 2.0 % Urine Color (Yellow) Urine Turbidity (Clear) Specific Gage (Man) (1.003-1.030) Ur Protein (Man) (Negative) mg/dL Ur Ketones (Man) (Negative) Urine Bilirubin (Man) (Negative) Urine WBC (Auto) (0.0-6.0) /HPF Urine RBC (Auto) (0.0-6.0) /HPF U Epithel Cells (Auto) (0-13.0) /HPF Urine Bacteria (Auto) (Negative) /HPF Urine RBC (Manual) (Negative) Salicylates (2.8-20.0) mg/dL Urine Opiates Screen Urine Methadone Screen Acetaminophen (10.0-30.0) ug/mL Ur Barbiturates Screen Ur Phencyclidine Scrn Ur Amphetamines Screen U Benzodiazepines Scrn Urine Cocaine Screen U Marijuana (THC) Screen Drugs of Abuse Note Plasma/Serum Alcohol (0-0.07) % 07/11/22 Range/Units 05:50 WBC (4.5-11.0) K/mm3 RBC (3.65-5.03) M/mm3 Hgb (10.1-14.3) gm/dl Hct (30.3-42.9) % MCV (79-97) fl MCH (28-32) pg MCHC (30-34) % RDW (13.2-15.2) % Plt Count (140-440) K/mm3 Lymph % (Auto) (13.4-35.0) % [place] % (Auto) (0.0-7.3) % Eos % (Auto) (0.0-4.3) % Baso % (Auto) Lymph # (Auto) (1.2-5.4) K/mm3 [place] # (Auto) (0.0-0.8) K/mm3 Eos # (Auto) (0.0-0.4) K/mm3 Baso # (Auto) (0.0-0.1) K/mm3 Add Manual Diff Total Counted Seg Neutrophils % (40.0-70.0) % Seg Neuts % (Manual) (40.0-70.0) % Band Neutrophils % % Lymphocytes % (Manual) (13.4-35.0) % Reactive Lymphs % (Man) % Monocytes % (Manual) (0.0-7.3) % Eosinophils % (Manual) (0.0-4.3) % Basophils % (Manual) (0.0-1.8) % Metamyelocytes % % Myelocytes % % Promyelocytes % % Blast Cells % % Nucleated RBC % Seg Neutrophils # (1.8-7.7) K/mm3 Seg Neutrophils # Man (1.8-7.7) K/mm3 Band Neutrophils # K/mm3 Lymphocytes # (Manual) (1.2-5.4) K/mm3 Abs React Lymphs (Man) K/mm3 Monocytes # (Manual) (0.0-0.8) K/mm3 Eosinophils # (Manual) (0.0-0.4) K/mm3 Basophils # (Manual) (0.0-0.1) K/mm3 Metamyelocytes # K/mm3 Myelocytes # K/mm3 Promyelocytes # K/mm3 Blast Cells # K/mm3 WBC Morphology Hypersegmented Neuts Hyposegmented Neuts Hypogranular Neuts Smudge Cells Toxic Granulation Toxic Vacuolation Dohle Bodies Pelger-Huet Anomaly Yumiko Rods Platelet Estimate Clumped Platelets Plt Clumps, EDTA Large Platelets Giant Platelets Platelet Satelliting Plt Morphology Comment RBC Morphology Dimorphic RBCs Polychromasia Hypochromasia Poikilocytosis Anisocytosis Microcytosis Macrocytosis Spherocytes Pappenheimer Bodies Sickle Cells Target Cells Tear Drop Cells Ovalocytes Helmet Cells [place] Bodies [place] Rings Jose A Cells Bite Cells Crenated Cell Elliptocytes Acanthocytes (Spur) Rouleaux Hemoglobin C Crystals Schistocytes Malaria parasites Duncan Bodies Hem Pathologist Commnt Sodium (137-145) mmol/L Potassium (3.6-5.0) mmol/L Chloride (98-107) mmol/L Carbon Dioxide (22-30) mmol/L Anion Gap mmol/L BUN (7-17) mg/dL Creatinine (0.6-1.2) mg/dL Estimated GFR ml/min BUN/Creatinine Ratio % Glucose (65-100) mg/dL POC Glucose 105 (70-105) mg/dL Calcium (8.4-10.2) mg/dL Total Bilirubin (0.1-1.2) mg/dL Direct Bilirubin (0-0.2) mg/dL Indirect Bilirubin mg/dL AST (5-40) units/L ALT (7-56) units/L Alkaline Phosphatase (35-129) units/L Total Protein (6.3-8.2) g/dL Albumin (3.9-5) g/dL Albumin/Globulin Ratio % Urine Color (Yellow) Urine Turbidity (Clear) Specific Gage (Man) (1.003-1.030) Ur Protein (Man) (Negative) mg/dL Ur Ketones (Man) (Negative) Urine Bilirubin (Man) (Negative) Urine WBC (Auto) (0.0-6.0) /HPF Urine RBC (Auto) (0.0-6.0) /HPF U Epithel Cells (Auto) (0-13.0) /HPF Urine Bacteria (Auto) (Negative) /HPF Urine RBC (Manual) (Negative) Salicylates (2.8-20.0) mg/dL Urine Opiates Screen Urine Methadone Screen Acetaminophen (10.0-30.0) ug/mL Ur Barbiturates Screen Ur Phencyclidine Scrn Ur Amphetamines Screen U Benzodiazepines Scrn Urine Cocaine Screen U Marijuana (THC) Screen Drugs of Abuse Note Plasma/Serum Alcohol (0-0.07) %
== END 2022-07-12 15:30 | disposition home or self-care (01) ==
LOC: EEVIPCON 19:26 → ED 19:26
DX: T42.4X2A Poisoning by benzodiazepines, intentional self-harm, initial encounter (principal); Z79.899 Other long term (current) drug therapy; Y92.89 Other specified places as the place of occurrence of the external cause
CPT/HCPCS: 36415; 70450; 80048; 80053; 80076; 80307; 80320; 81001; 85007; 85025; 93005; 99285; G0480

== ENCOUNTER 2022-07-24 07:18 | Emergency (ER) | payer MEDICARE ==
[2022-07-24] MEDS ORDERED: SODIUM CHLORIDE 0.9% 1000 ML 1,000 ML IV ONE (07:59)
--- NOTE | 2022-07-24 09:30 | Emergency Department Report ---
ED Syncope HPI - General Chief Complaint: Syncope Stated Complaint: SYNCOPAL EPISODE Time Seen by Provider: 07/24/22 07:59 - History of Present Illness Initial Comments: Patient is a 66-year-old female brought in by EMS from [facility] after syncopal event. Patient states she was at a counter when she suddenly collapsed. She d enies any preceding symptoms. She denies any injury/pain. - Related Data Allergies/Adverse Reactions: Allergies No Known Allergies Allergy (Unverified 07/06/22 22:27) Home Medications: Ambulatory Orders Sitagliptin Phosphate [Januvia] 50 mg PO 07/11/22 buPROPion [Wellbutrin] 75 mg PO 07/11/22 carvediloL [Coreg] 3.125 mg PO BID 07/11/22 OLANZapine [Zyprexa] 15 mg PO DAILY #30 07/12/22 Venlafaxine [Effexor] 150 mg PO DAILY #60 07/12/22 traZODone [Desyrel] 50 mg PO QHS #30 tab 07/12/22 ED Review of Systems ROS: Stated complaint: SYNCOPAL EPISODE Other details as noted in HPI Constitutional: denies: chills, fever Respiratory: denies: cough, shortness of breath, wheezing Cardiovascular: denies: chest pain, palpitations Gastrointestinal: denies: abdominal pain, nausea, diarrhea Genitourinary: denies: urgency, dysuria, discharge Skin: other (Sacral wound) Neurological: denies: headache, weakness, paresthesias Psychiatric: denies: anxiety, depression ED Past Medical Hx - Past Medical History Hx Hypertension: Yes Hx Diabetes: Yes Hx Psychiatric Treatment: Yes (anxiety, depression) - Social History Smoking Status: Never Smoker Substance Use Type: None - Medications Home Medications: Home Medications Medication Instructions Recorded Confirmed Last Taken Type Sitagliptin Phosphate [Januvia] 50 mg PO 07/11/22 Unknown History buPROPion [Wellbutrin] 75 mg PO 07/11/22 Unknown History carvediloL [Coreg] 3.125 mg PO BID 07/11/22 07/11/22 Unknown History OLANZapine [Zyprexa] 15 mg PO DAILY #30 07/12/22 Unknown Rx Venlafaxine [Effexor] 150 mg PO DAILY #60 07/12/22 Unknown Rx traZODone [Desyrel] 50 mg PO QHS #30 tab 07/12/22 Unknown Rx ED Physical Exam - General Limitations: No Limitations General appearance: alert, in no apparent distress - Head Head exam: Present: atraumatic, normocephalic - Neck Neck exam: Present: normal inspection, full ROM. Absent: tenderness - Respiratory Respiratory exam: Present: normal lung sounds bilaterally. Absent: respiratory distress - Cardiovascular Cardiovascular Exam: Present: regular rate, normal rhythm, normal heart sounds - GI/Abdominal GI/Abdominal exam: Present: soft. Absent: distended, tenderness - Rectal Rectal exam: Present: deferred - Neurological Exam Neurological exam: Present: alert, oriented X3, CN II-XII intact - Psychiatric Psychiatric exam: Present: normal affect, normal mood - Skin Skin exam: Present: warm, dry, intact, normal color ED Course Vital Signs 07/24/22 07/24/22 07:22 09:45 Temperature 98.6 F Pulse Rate 60 Respiratory 18 Rate Blood Pressure 100/68 [Left] O2 Sat by Pulse 96 100 Oximetry ED Medical Decision Making - Lab Data Result diagrams: 07/24/22 09:10 07/24/22 09:10 - EKG Data -: EKG Interpreted by Fl EKG shows normal: sinus rhythm, axis, intervals, QRS complexes, ST-T waves Rate: normal - EKG Data Interpretation: normal EKG - Medical Decision Making Patient brought in by EMS for syncopal episode. Physical exam is benign. EKG is normal. Sodium 146. Troponin mildly elevated. Patient denies any chest pain or palpitations. She was given 1 L saline bolus. Troponin was repeated and is normal. Patient reevaluated and remains asymptomatic. She is stable for discharge back to [place]. Critical care attestation.: If time is entered above; I have spent that time in minutes in the direct care of this critically ill patient, excluding procedure time. ED Disposition Clinical Impression: Syncope and collapse Disposition: 01 HOME / SELF CARE / HOMELESS Is pt being admited?: No Condition: Stable Instructions: Syncope (ED), Syncope, [id number] Time of Disposition: 13:38
[2022-07-24 09:45] LABS: Basophils % (Auto) 0.6 % (0.0-1.8); Eosinophils % (Auto) 0.8 % (0.0-4.3); Lymphocytes # (Auto) 0.8 K/mm3 (1.2-5.4); Lymphocytes % (Auto) 17.7 % (13.4-35.0); Mean Corpuscular HGB Conc 33 % (30-34); Mean Corpuscular Volume 84 fl (79-97); Monocytes # (Auto) 0.5 K/mm3 (0.0-0.8); Monocytes % (Auto) 10.4 % (0.0-7.3); Platelet Count 175 K/mm3 (140-440); Red Blood Count 4.42 M/mm3 (3.65-5.03); Red Cell Distribution Width 14.6 % (13.2-15.2)
[2022-07-24 10:05] LABS: Alanine Aminotransferase 23 units/L (7-56); BUN/Creatinine Ratio 9; Blood Urea Nitrogen 8 mg/dL (7-17); Calcium 9.4 mg/dL (8.4-10.2); Hemolysis Index 8
[2022-07-24 10:16] LABS: Chol/HDL Ratio 1.93 %; HDL Cholesterol 65 mg/dL (40-59); LDL Cholesterol,Direct 50 mg/dL (50-130)
[2022-07-24 17:32] VITALS: BP 102/56
--- NOTE | 2022-07-27 09:46 | Electrocardiograph Report ---
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
== END 2022-07-24 17:33 | disposition home or self-care (01) ==
LOC: ED 07:18
DX: R55 Syncope and collapse (principal); I10 Essential (primary) hypertension; E11.9 Type 2 diabetes mellitus without complications; F41.9 Anxiety disorder, unspecified
CPT/HCPCS: 36415; 80053; 80061; 84484; 85025; 93005; 96360; 99284; J7030